=== PATIENT | female | born 1990 | race African-American/Black ===

== ENCOUNTER 2021-07-06 20:29 | Emergency (ER) | payer OTHER ==
[~2021-07-06] VITALS: Ht 165.1 cm; Wt 62.1 kg
[~2021-07-06 20:29] MED LIST: DEPO-PROVER150 MG/M1 IM; NAPROSYN500 MG PO; NOHOMEMEDICATIONS
[2021-07-06 20:32] VITALS: BP 111/68
[2021-07-06] MEDS ORDERED: FLEXERIL PO (21:30)
== END 2021-07-06 21:00 | disposition home or self-care (01) ==
LOC: ER 20:29
DX: U07.1 COVID-19 (principal); Z90.89 Acquired absence of other organs; Z88.8 Allergy status to other drugs, medicaments and biological substances